=== PATIENT | female | born 1945 | race Caucasian/White ===

== ENCOUNTER 2023-08-25 12:25 | Outpatient (RCR) | payer MEDICARE, OTHER, SELFPAY | END 2023-08-25 23:59 | disposition home or self-care (01) | LOC: ROT 12:25 | PROVIDERS: ATTENDING PHYSICIAN Internal Medicine | DX: M65.332 Trigger finger, left middle finger (principal); M25.532 Pain in left wrist; Z73.6 Limitation of activities due to disability | CPT/HCPCS: 97010; 97110; 97166; 97535 ==

== ENCOUNTER 2023-09-12 10:50 | Outpatient (RCR) | payer MEDICARE, OTHER, SELFPAY | END 2023-09-12 23:59 | disposition home or self-care (01) | LOC: ROT 10:50 | PROVIDERS: ATTENDING PHYSICIAN Internal Medicine | DX: M25.532 Pain in left wrist (principal); Z73.6 Limitation of activities due to disability; M65.332 Trigger finger, left middle finger; M62.81 Muscle weakness (generalized) | CPT/HCPCS: 97010; 97110; 97535 ==

== ENCOUNTER → 2023-12-02 12:23 | Outpatient (REF) | payer MEDICARE, OTHER, SELFPAY ==
[2023-12-02 15:04] LABS: Free T4 1.32 ng/dl (0.78-2.19)
[2023-12-02 15:18] LABS: TSH 0.63 uIU/ml (0.47-4.68)
== END ==
LOC: REG 12:23
PROVIDERS: ATTENDING PHYSICIAN Internal Medicine Endocrinology, Diabetes & Metabolism; FAMILY PHYSICIAN Internal Medicine
DX: E03.9 Hypothyroidism, unspecified (principal)
CPT/HCPCS: 36415; 84439; 84443

== ENCOUNTER → 2023-12-27 09:44 | Outpatient (REF) | payer MEDICARE, OTHER, SELFPAY | LOC: WDC 09:44 | PROVIDERS: ATTENDING PHYSICIAN Internal Medicine | DX: N64.4 Mastodynia (principal) | CPT/HCPCS: 76642; 77061; 77065 ==

== ENCOUNTER → 2024-06-05 08:30 | Outpatient (REF) | payer MEDICARE, OTHER, SELFPAY | LOC: WDC 08:30 | PROVIDERS: ATTENDING PHYSICIAN Internal Medicine | DX: Z12.31 Encounter for screening mammogram for malignant neoplasm of breast (principal); N64.4 Mastodynia | CPT/HCPCS: 77063; 77067 ==

== ENCOUNTER → 2024-08-13 14:07 | Outpatient (REF) | payer MEDICARE, OTHER, SELFPAY ==
[2024-08-13 16:12] LABS: TSH 0.45 uIU/ml (0.47-4.68)
== END ==
LOC: REG 14:07
PROVIDERS: ATTENDING PHYSICIAN Internal Medicine Endocrinology, Diabetes & Metabolism; FAMILY PHYSICIAN Internal Medicine
DX: E03.9 Hypothyroidism, unspecified (principal)
CPT/HCPCS: 36415; 84439; 84443

== ENCOUNTER 2024-11-29 06:24 | Day surgery (SDC) | payer MEDICARE, OTHER, SELFPAY | END 2024-11-29 10:20 | disposition home or self-care (01) | LOC: GI 06:24 | PROVIDERS: ATTENDING PHYSICIAN Internal Medicine Gastroenterology | DX: Z12.11 Encounter for screening for malignant neoplasm of colon (principal); K52.832 Lymphocytic colitis; D12.0 Benign neoplasm of cecum; K57.30 Diverticulosis of large intestine without perforation or abscess without bleeding; K62.1 Rectal polyp; K29.40 Chronic atrophic gastritis without bleeding; K31.A11 Gastric intestinal metaplasia without dysplasia, involving the antrum; K21.00 Gastro-esophageal reflux disease with esophagitis, without bleeding; K22.89 Other specified disease of esophagus; K44.9 Diaphragmatic hernia without obstruction or gangrene; K31.89 Other diseases of stomach and duodenum; Z86.0101 Personal history of adenomatous and serrated colon polyps; Z87.19 Personal history of other diseases of the digestive system | CPT/HCPCS: 45380; 43239; 88305; 88342 ==

== ENCOUNTER → 2025-03-07 09:13 | Outpatient (REF) | payer MEDICARE, OTHER, SELFPAY | LOC: RCS 09:13 | PROVIDERS: ATTENDING PHYSICIAN Internal Medicine Cardiovascular Disease; FAMILY PHYSICIAN Internal Medicine | DX: I48.0 Paroxysmal atrial fibrillation (principal); I25.10 Atherosclerotic heart disease of native coronary artery without angina pectoris; I35.8 Other nonrheumatic aortic valve disorders | CPT/HCPCS: 93306 ==

== ENCOUNTER → 2025-06-06 16:20 | Outpatient (REF) | payer MEDICARE, OTHER, SELFPAY | LOC: WDC 16:20 | PROVIDERS: ATTENDING PHYSICIAN Nurse Practitioner Gerontology; FAMILY PHYSICIAN Internal Medicine; REFERRING PHYSICIAN Internal Medicine Rheumatology | DX: M25.532 Pain in left wrist (principal); Z12.31 Encounter for screening mammogram for malignant neoplasm of breast; Z12.39 Encounter for other screening for malignant neoplasm of breast; Z85.3 Personal history of malignant neoplasm of breast | CPT/HCPCS: 73110; 77063; 77067 ==